=== PATIENT | female | born 1945 | race Caucasian/White ===

== ENCOUNTER 2018-12-27 09:48 | Outpatient (CLI) | payer MEDICARE, OTHER ==
--- NOTE | 2018-12-27 12:12 | RAD ---
FIVE VIEWS LUMBAR SPINE: Date: 12-27-18 History: Bilateral leg pain. FINDINGS: There is severe levo rotoscoliosis at the thoracolumbar junction. Post-operative clips are noted in t he right mid abdomen medially. Incompletely imaged dorsal column stimulator present. Anterolisthesis of L5 on S1 measures 8 mm and of L4 on L5 measures 5 mm. There is multilevel lower lumbar spine facet hypertrophy inferiorly on the left. The degree of scoliosis limits detailed assessment. There appears to be multilevel right lateral disc space narrowing of the upper lumbar spine and left lateral disc space narrowing involving the lower lumbar spine on the basis of scoliosis. IMPRESSION: Scoliotic curvature of the imaged spine with associated degenerative change. POS: [facility]
--- NOTE | 2018-12-27 12:28 | RAD ---
FRONTAL AND LATERAL IMAGING OF THE THORACIC SPINE: Date: 12-27-18 History: Thoracic pain. FINDINGS: There is prominent levo rotoscoliosis at the thoracolumbar junction. This markedly limits assessment on the lateral exam. There is probable grade I anterolisthesis at T11-12. No acute osseous abnormalit y is noted. Incompletely imaged cervical spine demonstrates anterolisthesis at C4-5 measuring 5-6 mm. Dorsal column stimulator overlies the thoracic spine at the T8 level. IMPRESSION: Chronic appearing findings as described above. POS: [facility]
== END 2018-12-27 09:49 | disposition home or self-care (01) ==
LOC: TBSIIMAG 09:48
PROVIDERS: ATTEND Neurological Surgery
DX: M54.5 Low back pain (principal); M54.6 Pain in thoracic spine; M41.9 Scoliosis, unspecified; M43.12 Spondylolisthesis, cervical region; M47.816 Spondylosis without myelopathy or radiculopathy, lumbar region
CPT/HCPCS: 72072; 72100